=== PATIENT | female | born 1955 | race Caucasian/White ===

== ENCOUNTER → 2016-05-13 | Outpatient (CLI) | payer OTHER ==
--- NOTE | 2016-05-16 10:13 | MM ---
Reason for exam: screening (asymptomatic). Last mammogram was performed 1 year and 3 months ago. History: Patient is postmenopausal. Benign right mammotome panel of the right breast, January 08, 2013. Took progesterone for 1 month. Physical Findings: A clinical breast exam by your physician is recommended on an annual basis and results should be correlated with mammographic findings. MG 3D Screening Mammo W/Cad Bilateral CC and MLO view(s) were taken. Prior study comparison: February 18, 2015, bilateral MG screening mammo w CAD. February 12, 2014, bilateral MG diagnostic mammo w CAD NAOMY. The breast tissue is heterogeneously dense. This may lower the sensitivity of mammography. Benign calcifications bilaterally. Previous mammotome biopsy in the right breast. There is chronic nodularity bilaterally. No significant changes when compared with prior studies. ASSESSMENT: Benign, BI-RAD 2 RECOMMENDATION: Routine screening mammogram of both breasts in 1 year.
== END | disposition home or self-care (01) ==
LOC: RADMAMWWP 07:55
PROVIDERS: ATTEND Obstetrics & Gynecology
DX: Z12.31 Encounter for screening mammogram for malignant neoplasm of breast (principal)
CPT/HCPCS: 77063; G0202

== ENCOUNTER → 2016-06-08 | Outpatient (CLI) | payer OTHER ==
--- NOTE | 2016-06-08 17:35 | WWHP ---
DATE OF SERVICE: 06/08/2016. CHIEF COMPLAINT: Patient is here for her routine gynecologic exam. HPI: This is a 60-year-old G4, P4 with an LMP of 2008. The patient is complaining of some vaginal dryness which makes it very uncomfortable to have sexual intercourse. She has tried lubrication without much help. The patient continues to use Zoloft for anxiety. She has tried several times to wean off of it and within a few months she develops severe panic attacks and anxiety. She states she is doing well with the Zoloft. PAST MEDICAL HISTORY: Depression and anxiety, seasonal allergies. MEDICATIONS: 1. Zoloft 50 mg daily. 2. Flonase p.r.n. 3. Zyrtec p.r.n. ALLERGIES TO AUGMENTIN AND PENICILLIN. PAST SURGICAL HISTORY: Unchanged from the 2014 H&P. SOCIAL HISTORY: She denies tobacco and drug use and has about 5 to 7 alcoholic drinks per week. 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 REVIEW OF SYSTEMS: She has lost about 9 pounds over the last year and this has been done through diet and exercise. She denies respiratory, cardiac, or GI problems. PHYSICAL EXAM: Blood pressure 116/77. Height 5 feet 5 inches. Weight 198 pounds. Temperature 98.3, pulse 88. This a well-developed, well-nourished white female who is alert and oriented x3 in no acute distress. HEENT is within normal limits. NECK: Supple without mass or thyromegaly. CHEST AND LUNGS: Clear to auscultation. HEART: Regular rate and rhythm. Breasts are without mass or discharge. Axillary exam is negative for adenopathy. BACK: Negative for CVA tenderness. ABDOMEN: Soft, nontender, without palpable masses. PELVIC EXAM: External genitalia reveals mild to moderate atrophy without lesions. Cervix and vagina reveal mild to moderate atrophy without lesions. There is no evidence of prolapse. There is no cervical motion tenderness. The uterus is midposition, nongravid size and nontender. There are no palpable adnexal masses or tenderness. Rectovaginal exam is negative for mass or tenderness and is negative for occult blood. EXTREMITIES: Nontender. IMPRESSION: 1. A 60-year-old menopausal female with mild to moderate genital atrophy and otherwise unremarkable gynecologic exam. 2. Vaginal dryness secondary to genital atrophy. 3. History of anxiety and panic attacks. She is doing well on Zoloft. PLAN: 1. Pap smear was performed. 2. Self-breast examination was discussed. 3. Mammogram on 05/13/2016 was benign. She will repeat this in one year. 4. Continue Zoloft 50 mg daily. 5. Trial of Premarin vaginal cream 1 to 2 grams intravaginally twice weekly. 6. A prescription for the upcoming year was given to patient for this. 7. Patient is requesting screening labs and this will include cholesterol. Comprehensive chem panel and CBC. An order slip was given and she will return fasting. She states she has not seen Dr. Mccoy during the past 1 to 2 years. 8. She will return in one year. NELIA
== END | disposition home or self-care (01) ==
LOC: WWCWWP 10:03
PROVIDERS: ATTEND Obstetrics & Gynecology
DX: Z01.419 Encounter for gynecological examination (general) (routine) without abnormal findings (principal)

== ENCOUNTER → 2017-06-07 | Outpatient (CLI) | payer OTHER ==
[2017-06-07 09:35] VITALS: BP 124/79; PULSE 81; RESP 18; TEMP 97.4; BMI 31.2
--- NOTE | 2017-06-07 10:20 | P.HPOB ---
History of Present Illness H&P Date: 06/07/17 Chief Complaint: The patient is here for her routine gynecologic exam and mammogram. This is a 61-year-old with an LMP of 2007. The patient is without gynecologic complaints and denies any postmenopausal bleeding. Review of Systems The patient has lost about 10 pounds over the last year. She has done this with diet and exercise. She denies respiratory, cardiac, or G.I. problems. Past Medical History Additional Past Medical History / Comment(s): Depression, anxiety and seasonal allergies. 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 She has had four vaginal deliveries. Past Surgical History: Breast Surgery (Right core breast biopsy in 2012.), Orthopedic Surgery (Hand surgery) Additional Past Surgical History / Comment(s): Bunionectomy, colonoscopy 2010. 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 - Past Family History Father Family Medical History: Cancer (Leukemia) Medications and Allergies Home Medications Medication Instructions Recorded Confirmed Type Cetirizine HCl [Zyrtec] 10 mg PO DAILY 06/07/17 06/07/17 History Fluticasone Propionate [Flonase 1 spray EA NOSTRIL 06/07/17 History Allergy Relief] Sertraline [Zoloft] 50 mg PO DAILY 06/07/17 06/07/17 History Allergies Allergy/AdvReac Type Severity Reaction Status Date / Time amoxicillin [From Augmentin] Allergy Rash/Hives Verified 06/07/17 07:36 clavulanic acid Allergy Rash/Hives Verified 06/07/17 07:36 [From Augmentin] Penicillins Allergy Rash/Hives Verified 06/07/17 07:36 Exam - Vital Signs Vital signs: Vital Signs Temp Pulse Resp BP 06/07/17 09:23 97.4 F L 81 18 124/79 Intake and Output 06/06/17 06/07/17 06/07/17 22:59 06:59 14:59 Other: Weight 85.275 kg Height 5'5", CHITO 31.3. This is a well-developed well-nourished white female who is alert and oriented times 3 in no acute distress. HEENT: Within normal limits. NECK: Supple without mass or thyromegaly. CHEST AND LUNGS: Clear to auscultation. HEART: Regular rate and rhythm. BREASTS: Are without mass or discharge. AXILLARY EXAM: Negative for adenopathy. BACK: Negative for CVA tenderness. ABDOMEN: Soft, nontender, without palpable masses. PELVIC EXAM: Normal external genitalia with mild to moderate atrophy. Cervix and vagina appear normal with mild atrophy. There is no unusual discharge. There is no evidence of prolapse. The uterus is midposition, nongravid size and nontender. There are no palpable adnexal masses or tenderness. RECTAL EXAM: rectovaginal exam is negative for mass or tenderness and is negative for occult blood. EXTREMITIES: Nontender. IMPRESSION: 1. 61-year-old menopausal female with normal gynecologic exam. PLAN: 1. Pap smear was deferred since she had a normal one last year. 2. Self breast awareness was discussed. 3. Screening mammogram will be done today. 4. Osteoporosis prevention was discussed. She had a normal bone density test on 02/05/2016. We will plan on repeating this in approximately 6 years. 5. He will return in one year.
--- NOTE | 2017-06-07 14:21 | MM ---
Reason for exam: screening (asymptomatic). Last mammogram was performed 1 year and 1 month ago. History: Patient is postmenopausal and has history of other cancer at age 61. Benign right mammotome panel of the right breast, January 08, 2013. Took progesterone for 1 month. Physical Findings: A clinical breast exam by your physician is recommended on an annual basis and results should be correlated with mammographic findings. MG 3D Screening Mammo W/Cad Bilateral CC and MLO view(s) were taken. Prior study comparison: May 13, 2016, bilateral MG 3d screening mammo w/cad. February 18, 2015, bilateral MG screening mammo w CAD. The breast tissue is heterogeneously dense. This may lower the sensitivity of mammography. Finding: There are typically benign vascular, round calcifications in both breasts. Previous mammotome biopsy in the right breast. There is a chronic nodularity bilaterally. There is no discrete abnormality. ASSESSMENT: Benign, BI-RAD 2 RECOMMENDATION: Routine screening mammogram of both breasts in 1 year.
== END | disposition home or self-care (01) ==
LOC: WWCWWP 09:16
PROVIDERS: ATTEND Obstetrics & Gynecology
DX: Z12.31 Encounter for screening mammogram for malignant neoplasm of breast (principal)
CPT/HCPCS: 77063; 77067

== ENCOUNTER → 2017-09-13 | Outpatient (CLI) | payer OTHER ==
--- NOTE | 2017-09-13 18:37 | CT ---
EXAMINATION TYPE: CT abdomen pelvis w con DATE OF EXAM: 09/13/2017 COMPARISON: None HISTORY: Left lower quadrant pain and diarrhea. CT DLP: 1068 mGycm Automated exposure control for dose reduction was used. TECHNIQUE: Helical acquisition of images was performed from the lung bases through the pelvis. CONTRAST: Performed with Oral Contrast and with IV Contrast, patient injected with 100 mL of Isovue M300. FINDINGS: Lung bases are clear. There is no pleural effusion. Heart size is normal. There is no pericardial eff usion. There is a 1 cm cyst in the inferior right lobe of the liver. The bile ducts are not dilated. Spleen appears normal. There is no pancreatic mass. Gallbladder appears normal. Bile ducts are not dilated. There is no adrenal mass. Kidneys show satisfactory contrast opacification. There is no hydronephrosi s. There is no retroperitoneal adenopathy. There is no ascites. There is some wall thickening of the sigmoid colon. Bladder distends smoothly. There is no pelvic mass. Uterus is anteverted. I see no bon y destructive process. Appendix is filled with contrast and appears normal. There are sigmoid diverti cula. IMPRESSION: THERE IS WALL THICKENING AND SIGMOID DIVERTICULA. NO SIGNIFICANT SURROUNDING INFLAMMATORY CHANGES. TH IS IS CONSISTENT WITH MILD FOCAL COLITIS.
== END | disposition home or self-care (01) ==
LOC: RADCTMAIN 16:25
PROVIDERS: ATTEND Physician Assistant
DX: K57.30 Diverticulosis of large intestine without perforation or abscess without bleeding (principal); K63.89 Other specified diseases of intestine
CPT/HCPCS: 74177; Q9967

== ENCOUNTER → 2017-12-01 | Day surgery (SDC) | payer OTHER ==
[2017-11-29 12:09] VITALS: BMI 31.4
[~2017-12-01] MED LIST: LACTATED RINGERS 1,000 ML IV SCH; LIDOCAINE 1% 20 ML VIAL (10MG/ML) FOR IV START INTRADERMA ONE; LIDOCAINE 1% INJ 10MG/ML (20 ML MDV) ONE; PROPOFOL 10 MG/ML 20 ML VIAL IV ONE
[2017-12-01 09:11] VITALS: RESP 16; TEMP 99.4
--- NOTE | 2017-12-01 10:08 | P.PCN ---
Date of Procedure: 12/01/17 Procedure(s) Performed: BRIEF HISTORY: Patient is a 62-year-old pleasant female, scheduled for an elective colonoscopy as a part of value should of the colon appeared normal pain and intermittent diarrhea for the last few few weeks duration. PROCEDURE PERFORMED: Colonoscopy with snare polypectomy PREOPERATIVE DIAGNOSIS: Left lower quadrant pain and intermittent diarrhea. IV sedation per Anesthesia. PROCEDURE: After informed consent was obtained, the patient, was brought into the endoscopy unit. IV sedation was administered by Anesthesia under continuous monitoring. Digital rectal examination was normal. Initially the Olympus CF- 160 flexible video colonoscope was then inserted in the rectum, gradually advanced into the cecum without any difficulty. Careful examination was performed as the scope was gradually being withdrawn. Ileocecal valve and the appendiceal orifice were visualized and appeared normal. Prep was excellent. Mucosa of the cecum, ascending colon, transverse colon, descending colon, sigmoid colon, and rectum appeared normal. Scattered small diverticula seen. In the proximal rectum there was a 5 mm polyp that was removed by snare polypectomy. Retroflexion was performed in the rectum and no lesions were seen. The patient tolerated the procedure well. IMPRESSION: 5 mm proximal rectal polyp status post polypectomy Scattered sigmoid diverticulosis RECOMMENDATIONS: Findings of this examination were discussed with the patient as well as a family. She can have a repeat colonoscopy in 5 years based on the biopsy results.
[2017-12-01 10:44] VITALS: BP 119/72; PULSE 67
== END | disposition home or self-care (01) ==
LOC: ORWHC2ENDO 08:15
PROVIDERS: ATTEND Internal Medicine Gastroenterology
DX: K62.1 Rectal polyp (principal); K57.30 Diverticulosis of large intestine without perforation or abscess without bleeding; Z88.0 Allergy status to penicillin; F32.9 Major depressive disorder, single episode, unspecified; H93.19 Tinnitus, unspecified ear; Z79.899 Other long term (current) drug therapy
CPT/HCPCS: 88305; 45385; J2001; J2704

== ENCOUNTER → 2018-07-10 | Outpatient (CLI) | payer OTHER ==
[2018-07-10 14:45] VITALS: BP 130/88; PULSE 73; RESP 18; TEMP 98.3; BMI 32.7
--- NOTE | 2018-07-10 17:44 | P.HPOB ---
History of Present Illness H&P Date: 07/10/18 Chief Complaint: The patient is here for her routine gynecologic exam and ma mmogram. This is a 62-year-old with an LMP of 2007. The patient states she noticed a bruise on her left breast 1 week ago. She does not know what caused the bruise and denies any known trauma. The bruise has improved significantly since then. She is otherwise without complaints and denies any postmenopausal bleeding. Review of Systems The patient has gained 20 pounds over the last year. She denies respiratory, cardiac, or G.I. problems. Past Medical History Additional Past Medical History / Comment(s): seasonal allergies. 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 . History of Any Multi-Drug Resistant Organisms: None Reported Past Surgical History: Breast Surgery, Orthopedic Surgery Additional Past Surgical History / Comment(s): Bunionectomy. RT BREAST BX - BENIGN. Right arthroscopic knee surgery. Colonoscopy 2018(2nd). 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 - Past Family History Father Family Medical History: Cancer Additional Family Medical History / Comment(s): Leukemia Medications and Allergies Home Medications Medication Instructions Recorded Confirmed Type Cetirizine HCl [Zyrtec] 10 mg PO DAILY 06/07/17 07/10/18 History Fluticasone Propionate [Flonase 1 spray EA NOSTRIL DAILY 06/07/17 07/10/18 History Allergy Relief] Sertraline [Zoloft] 50 mg PO DAILY 06/07/17 07/10/18 History Allergies Allergy/AdvReac Type Severity Reaction Status Date / Time amoxicillin [From Augmentin] Allergy Rash/Hives Verified 07/10/18 14:47 clavulanic acid Allergy Rash/Hives Verified 07/10/18 14:47 [From Augmentin] Penicillins Allergy Rash/Hives Verified 07/10/18 14:47 Exam Vital Signs Temp Pulse Resp BP 07/10/18 14:40 98.3 F 73 18 130/88 Intake and Output 07/10/18 07/10/18 07/10/18 06:59 14:59 22:59 Other: Weight 94.801 kg Height 5'7", weight 209 pounds, BMI 32.7. This is a well-developed well-nourished white female who is alert and oriented times 3 in no acute distress. HEENT: Within normal limits. NECK: Supple without mass or thyromegaly. CHEST AND LUNGS: Clear to auscultation. HEART: Regular rate and rhythm. BREASTS: there is a left breast mass in the 1 to 2 o'clock position measuring approximately 1.0 x 1.5 cm. This is firm and nontender. There is a faint bruise around this area measuring approximately 2.5 x 2.5 cm. There are no other breast masses. There is no nipple discharge. AXILLARY EXAM: Negative for adenopathy. BACK: Negative for CVA tenderness. ABDOMEN: Soft, nontender, without palpable masses. PELVIC EXAM: Normal external genitalia with mild atrophy. Cervix and vagina appear normal with mild atrophy. There is no unusual discharge. There is no evidence of prolapse. The uterus is midposition, nongravid size and nontender. There are no palpable adnexal masses or tenderness. RECTAL EXAM: rectovaginal exam is negative for mass or tenderness and is negative for occult blood. EXTREMITIES: Nontender. IMPRESSION: 1. 62-year-old menopausal female with normal pelvic gynecologic exam. 2. Left breast mass measuring approximately 1.5 x 1.0 cm in in area that was bruised last week without any known trauma. 3. History of anxiety doing well on Zoloft. PLAN: 1. Pap smear was performed. 2. Self breast awareness was discussed with the patient. 3. Diagnostic bilateral mammogram with left breast ultrasound will be done today. The area of the palpable mass was marked. 4. The patient has been on Zoloft for anxiety for many years. She has tried several times to wean off of it without success. She will continue the Zoloft. The electronic prescription for this will be sent to [facility]. 5. Osteoporosis prevention was discussed. I have stressed the importance of adequate calcium, vitamin D and regular exercise. Recommended amounts of calcium and vitamin D were also discussed. She had a normal bone density test on 02/05/2016. Plan and repeating this approximately in 2021. 6.She was advised to return in one year for her annual well woman exam.
--- NOTE | 2018-07-11 09:12 | MM ---
Reason for exam: clinical finding. Last mammogram was performed 1 year and 1 month ago. History: Patient is postmenopausal and has history of other cancer at age 61. Benign right mammotome panel of the right breast, January 08, 2013. Took progesterone for 1 month. Indicated problem(s): lump or thickening in the left breast. Physical Findings: Nurse Summary: 1 x 1.5cm nodule in the left breast at 1-2 o'clock (Dr. Butler). MG 3D Diag Mammo W/Cad NAOMY Bilateral CC and MLO view(s) were taken. Prior study comparison: June 07, 2017, bilateral MG 3d screening mammo w/cad. May 13, 2016, bilateral MG 3d screening mammo w/cad. The breast tissue is heterogeneously dense. This may lower the sensitivity of mammography. There are benign appearing stable masses that appear as intramammary lymph nodes. Benign appearing bilateral calcifications. Right biopsy marker 07/10/18. ASSESSMENT: Benign, BI-RAD 2 RECOMMENDATION: Routine screening mammogram of both breasts in 1 year. Ultrasound will be performed at palpable per order.
--- NOTE | 2018-07-11 09:15 | USB ---
Reason for exam: clinical finding. History: Patient is postmenopausal and has history of other cancer at age 61. Benign right mammotome panel of the right breast, January 08, 2013. Took progesterone for 1 month. Indicated problem(s): lump or thickening in the left breast. US Breast Limited LT Left limited breast ultrasound including focal area of concern, retroareolar and axilla demonstrates predominantly hyperechoic area measuring 1.3cm is seen at the site of bruising corresponding to the palpable compatible with a hematoma. Repeat ultrasound would be recommended if this does not decrease in size in 3 months. These results were verbally communicated with the patient and result sheet given to the patient on 07/10/18. ASSESSMENT: Benign, BI-RAD 2 RECOMMENDATION: Routine screening mammogram of both breasts in 1 year. Manage patient on a clinical basis. If no decrease in size in 3 months then follow up ultrasound would be recommended.
== END | disposition home or self-care (01) ==
LOC: WWCWWP 13:53
PROVIDERS: ATTEND Obstetrics & Gynecology
DX: N63.21 Unspecified lump in the left breast, upper outer quadrant (principal)
CPT/HCPCS: 77062; 77066

== ENCOUNTER → 2019-02-08 | Outpatient (CLI) | payer OTHER ==
--- NOTE | 2019-02-08 15:07 | US ---
EXAMINATION TYPE: US carotid duplex BILAT DATE OF EXAM: 02/08/2019 COMPARISON: NONE CLINICAL HISTORY: R93.1 Abn findings diagnostic imaging of heart. CT scan at dental office showed plaque in arteries. EXAM MEASUREMENTS: RIGHT: Peak Systolic Velocity (PSV) cm/sec ----- Right CCA: 74.3 ----- Right ICA: 100.0 ----- Right ECA: 41.0 ICA/CCA ratio: 1.3 RIGHT: End Diastole cm/sec ----- Right CCA: 23.7 ----- Right ICA: 43.1 ----- Right ECA: 15.4 LEFT: Peak Systolic Velocity (PSV) cm/sec ----- Left CCA: 64.7 ----- Left ICA: 79.6 ----- Left ECA: 50.7 ICA/CCA ratio: 1.2 LEFT: End Diastole cm/sec ----- Left CCA: 16.8 ----- Left ICA: 0.0 ----- Left ECA: 10.2 VERTEBRALS (direction of flow): Right Vertebral: Antegrade Left Vertebral: Antegrade Rhythm: Normal Mild atherosclerotic changes with no significant velocity increases. IMPRESSION: Mild degree of grayscale atheromatous plaquing with no sonographically evident hemodynam ically significant stenosis within either visualized carotid arterial system. Criteria for Assigning % of Stenosis / Diameter reduction (Estimation based on the indirect measurements of the internal carotid artery velocities (ICA PSV). 1. Normal (no stenosis)=ICA PSV < 125 cm/s: ratio < 2.0: ICA EDV<40 cm/s. 2. Less than 50% stenosis=ICA PSV < 125 cm/s: ratio < 2.0: ICA EDV<40 cm/s. 3. 50 to 69% stenosis=ICA PSV of 125 to 230 cm/s: ration 2.0 ? 4.0: ICA EDV 40-100 cm/s. 4. Greater than 70% stenosis to near occlusion= ICA PSV > 230 cm/s: ratio > 4.0: ICA EDV > 100 cm/s. 5. Near occlusion= ICA PSV velocities may be low or undetectable: variable ratio and ICA EDV. 6. Total occlusion=unable to detect flow.
--- NOTE | 2019-02-11 10:25 | BD ---
EXAMINATION TYPE: Axial Bone Density DATE OF EXAM: 02/08/2019 COMPARISON: 02/05/2016 CLINICAL HISTORY: Z 78.0 Height: 64.5 IN Weight: 203 LBS FRAX RISK QUESTIONS: Secondary Osteoporosis: 3. Menopause before 45: AGE 49 RISK FACTORS HISTORY OF: Active: YES Postmenopausal woman: AGE 49 MEDICATIONS: Additional Medications: MULTI VIT, ZOLOFT, ALLERGY MEDS, EXAM MEASUREMENTS: Bone mineral densitometry was performed using the [employer] System. Bone mineral density as measured about the Lumbar spine is: ----- L1-L4(G/cm2): 1.493 T Score Values are as follows: ----- L2: 1.6 ----- L3: 2.5 ----- L4: 4.1 ----- L1-L4: 2.6 Bone mineral density has: Increased 0.8% since study of: 02/05/2016 Bone mineral density about the R hip (g/cm2): 1.152 Bone mineral density about the L hip (g/cm2): 1.198 T Score values are as follows: -----R Neck: 0.8 -----L Neck: 1.1 -----R Total: 2.3 -----L Total: 2.8 Bone mineral density has: Decreased -2.4% since study of: 02/05/2016 IMPRESSION: Normal (Values between +1 and -1 indicate normal bone mass). Consider repeating this study in 5 year s or sooner if there is some new clinical indication. NOTE: T-SCORE=SD OF THE YOUNG ADULT MEAN.
== END | disposition home or self-care (01) ==
LOC: RADUSWWP 14:22
PROVIDERS: ATTEND Family Medicine
DX: I65.23 Occlusion and stenosis of bilateral carotid arteries (principal); Z78.0 Asymptomatic menopausal state
CPT/HCPCS: 77080; 93880

== ENCOUNTER → 2019-11-27 | Outpatient (CLI) | payer MEDICARE ==
[2019-11-27 11:36] VITALS: BP 145/89; PULSE 80; RESP 18; TEMP 97.7
--- NOTE | 2019-11-27 12:22 | P.HPOB ---
History of Present Illness H&P Date: 11/27/19 Chief Complaint: The patient is here for her routine gynecologic exam. This is a 64-year-old with an LMP of 2008. The patient is without gynecologic complaints. Review of Systems She has lost about 23 pounds with dietary changes. She has been doing a weight loss program with her chiropractor. She denies respiratory, cardiac and G.I. problems. She denies maltreatment or problems with falling. : she denies any significant problems with urinary leakage. Past Medical History Additional Past Medical History / Comment(s): seasonal allergies. 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 . History of Any Multi-Drug Resistant Organisms: None Reported Past Surgical History: Breast Surgery, Orthopedic Surgery Additional Past Surgical History / Comment(s): Bunionectomy. RT BREAST BX - BENIGN. Right arthroscopic knee surgery. Colonoscopy 2018(2nd). Past Anesthesia/Blood Transfusion Reactions: No Reported Reaction Past Psychological History: Anxiety, Depression Smoking Status: Never smoker Past Alcohol Use History: Occasional (4-5 per week) Additional Past Alcohol Use History / Comment(s): DRINKS ABOUT 5 WEEKLY Past Drug Use History: None Reported Additional History: She has been since 1973 and is now retired. She has 12 grandchildren. - Past Family History Father Family Medical History: Cancer Additional Family Medical History / Comment(s): Leukemia Medications and Allergies Home Medications Medication Instructions Recorded Confirmed Type Cetirizine HCl [Zyrtec] 10 mg PO DAILY 06/07/17 11/27/19 History Fluticasone Propionate [Flonase 1 spray EA NOSTRIL DAILY 06/07/17 11/27/19 History Allergy Relief] Sertraline [Zoloft] 50 mg PO DAILY #90 tab 07/10/18 11/27/19 Rx Allergies Allergy/AdvReac Type Severity Reaction Status Date / Time amoxicillin [From Augmentin] Allergy Rash/Hives Verified 11/27/19 11:36 clavulanic acid Allergy Rash/Hives Verified 11/27/19 11:36 [From Augmentin] Penicillins Allergy Rash/Hives Verified 11/27/19 11:36 Exam Vital Signs Temp Pulse Resp BP Pulse Ox 11/27/19 11:30 97.7 F 80 18 145/89 98 Intake and Output 11/26/19 11/27/19 11/27/19 22:59 06:59 14:59 Other: Weight 84.368 kg Height 5 feet 5 inches, weight 186 pounds, BMI 31.0. This is a well-developed well-nourished white female who is alert and oriented times 3 in no acute distress. HEENT: Within normal limits. NECK: Supple without mass or thyromegaly. CHEST AND LUNGS: Clear to auscultation. HEART: Regular rate and rhythm. BREASTS: Are without mass or discharge. AXILLARY EXAM: Negative for adenopathy. BACK: Negative for CVA tenderness. ABDOMEN: Soft, nontender, without palpable masses. PELVIC EXAM: Normal external genitalia with mild atrophy. Cervix and vagina appear normal mild atrophy. There is no unusual discharge. There is no evidence of prolapse. The uterus is midposition, nongravid size and nontender. There are no palpable adnexal masses or tenderness. RECTAL EXAM: Rectovaginal exam is negative for mass or tenderness and is negative for occult blood. EXTREMITIES: Nontender. IMPRESSION: 1. 64-year-old menopausal female with normal gynecologic exam. 2. Mildly elevated blood pressure. PLAN: 1. Pap smear was deferred since she had a normal one on 07/10/2018. 2. Self breast awareness was discussed with the patient. 3. Screening mammogram is due. The patient states she will schedule it in the near future. The order slip was given to the patient for this. 4. Osteoporosis prevention was discussed. I have stressed the importance of adequate calcium, vitamin D and regular exercise. She had a normal bone density test done in 2015 and we are planning to redo this again in 2021. 5. She plans to get a flu shot in the near future. 6. We have discussed her elevated blood pressure today. I have recommended that she check her own blood pressure on a regular basis and follow-up with her PCP for blood pressure elevations. 7. The patient was advised to return in 1-2 years for her well woman examination.
== END | disposition home or self-care (01) ==
LOC: WWCWWP 11:17
PROVIDERS: ATTEND Obstetrics & Gynecology
DX: Z53.9 Procedure and treatment not carried out, unspecified reason (principal)

== ENCOUNTER → 2020-01-06 | Outpatient (CLI) | payer MEDICARE | END | disposition home or self-care (01) | LOC: LABWHC1 10:02 | PROVIDERS: ATTEND Otolaryngology | DX: J30.89 Other allergic rhinitis (principal) | CPT/HCPCS: 36415 ==

== ENCOUNTER → 2020-03-03 | Outpatient (CLI) | payer MEDICARE ==
--- NOTE | 2020-03-04 15:05 | MM ---
Reason for exam: screening (asymptomatic). Last mammogram was performed 1 year and 8 months ago. History: Patient is postmenopausal and has history of other cancer at age 61. Benign right mammotome panel of the right breast, January 08, 2013. Took progesterone for 1 month. Physical Findings: A clinical breast exam by your physician is recommended on an annual basis and results should be correlated with mammographic findings. MG 3D Screening Mammo W/Cad Bilateral CC and MLO view(s) were taken. Prior study comparison: July 10, 2018, bilateral MG 3d diag mammo w/cad NAOMY. June 07, 2017, bilateral MG 3d screening mammo w/cad. The breast tissue is heterogeneously dense. This may lower the sensitivity of mammography. There are benign appearing round vascular calcifications bilaterally. Previous mammotome biopsy in the right breast. There is chronic nodularity bilaterally. There is no discrete abnormality. ASSESSMENT: Benign, BI-RAD 2 RECOMMENDATION: Routine screening mammogram of both breasts in 1 year.
== END | disposition home or self-care (01) ==
LOC: RADMAMWWP 16:05
PROVIDERS: ATTEND Obstetrics & Gynecology
DX: Z12.31 Encounter for screening mammogram for malignant neoplasm of breast (principal)
CPT/HCPCS: 77063; 77067

== ENCOUNTER → 2020-09-24 | Outpatient (CLI) | payer MEDICARE ==
--- NOTE | 2020-09-24 12:59 | US ---
EXAMINATION TYPE: US abdomen limited DATE OF EXAM: 09/24/2020 COMPARISON: None CLINICAL HISTORY: 64-year-old female R05 Right upper quadrant pain. Belching, nausea after fatty meal s EXAM MEASUREMENTS: Liver Length: 15.3 cm Gallbladder Wall: 0.2 cm CBD: 2.5 mm Right Kidney: 11.0 x 6.0 x 4.1 cm Pancreas: Most of the pancreas is visualized and shows no gross abnormality. Liver: Slightly echogenic compared to the adjacent right kidney. Benign right lobe cyst noted = 1.0 x 1.1 x 0.9cm Gallbladder: Multiple small shadowing calculi within the gallbladder. No abnormal gallbladder distent ion, wall thickening, pericholecystic fluid. Evidence for sonographic Roque's sign: no CBD: wnl Right Kidney: No hydronephrosis. IMPRESSION: Slightly increased echogenicity of the liver may reflect mild fatty infiltration. Numerous small mobi le gallstones. No ancillary findings of acute cholecystitis. No biliary ductal dilatation.
== END | disposition home or self-care (01) ==
LOC: RADUSWWP 09:43
PROVIDERS: ATTEND Family Medicine
DX: K80.20 Calculus of gallbladder without cholecystitis without obstruction (principal)
CPT/HCPCS: 76705

== ENCOUNTER 2020-10-26 06:40 | Day surgery (SDC) | payer MEDICARE ==
[2020-10-21 10:13] VITALS: BMI 31.9
[~2020-10-26 06:40] MED LIST changes: +ACETAMINOPHEN TAB 500 MG TAB PO PRN; +DEXAMETHASONE SOD PHOSPHATE 4 MG/ML 1 ML VIAL IV ONE; +HEPARIN SODIUM,PORCINE/PF 5,000 UNIT/0.5 ML SYRINGE SQ PRN; -LIDOCAINE 1% 20 ML VIAL (10MG/ML) FOR IV START INTRADERMA ONE; -LIDOCAINE 1% INJ 10MG/ML (20 ML MDV) ONE; +ONDANSETRON 4 MG/2 ML VIAL IVP ONE; -PROPOFOL 10 MG/ML 20 ML VIAL IV ONE
[2020-10-26] MEDS ORDERED: MIDAZOLAM 2 MG/2 ML VIAL ONE (07:40)
[2020-10-26] MEDS ORDERED: PROPOFOL 10 MG/ML 20 ML VIAL IV ONE (07:40)
[2020-10-26] MEDS ORDERED: GLYCOPYRROLATE 0.2 MG/ML 2 ML VIAL ONE (07:40)
[2020-10-26] MEDS ORDERED: fentaNYL (PF) 50 MCG/ML 2 ML AMP ONE (07:40)
[2020-10-26] MEDS ORDERED: NEOSTIGMINE 1 MG/ML 10 ML VIAL ONE (07:40)
[2020-10-26] MEDS ORDERED: LIDOCAINE 1% INJ 10MG/ML (20 ML MDV) ONE (07:40)
[2020-10-26] MEDS ORDERED: PHENYLEPHRINE-0.9% NACL SYG 1,000 MCG/10 ML SYRINGE ONE (07:40)
[2020-10-26] MEDS ORDERED: SUCCINYLCHOLINE CHLORIDE 100 MG/5 ML SYR IV ONE (07:40)
[2020-10-26] MEDS ORDERED: ROCURONIUM 10 MG/ML (5 ML VIAL) IV ONE (07:40)
[2020-10-26] MEDS ORDERED: LIDOCAINE 1% INJ 10MG/ML (20 ML MDV) SQ ONE (08:11)
[2020-10-26] MEDS ORDERED: ONDANSETRON 4 MG/2 ML VIAL IVP PRN (08:42)
--- NOTE | 2020-10-26 08:45 | P.OP ---
Date of Procedure: 10/26/20 Procedure(s) Performed: PREOPERATIVE DIAGNOSIS: Chronic cholecystitis POSTOPERATIVE DIAGNOSIS: Same PROCEDURE: Laparoscopic cholecystectomy SURGEON: Gonzalo EBL: Minimal see anesthesia record ANESTHESIA: Gen. COMPLICATIONS: None OPERATIVE PROCEDURE: The patient was brought and placed on the operating room table in the supine position. The patient was placed under general anesthesia at that time. The abdomen was prepped and draped in the usual sterile fashion. A small vertical infraumbilical incision was made. The fascia was grasped with the Brody forceps. The fascia was retracted anteriorly. The Veress needle was advanced into the peritoneal cavity. The saline drop test was normal. Insufflation took place up to 15 mmHg. A 5 mm optical trocar was advanced and the peritoneal cavity. 2 additional 5 mm trochars were placed in the right upper quadrant under direct visualization. A 12 mm trocar was advanced into the epigastric incision site. The gallbladder was retracted superiorly and laterally. The peritoneum overlying the infundibulum was bluntly dissected. The patient's cystic duct was visualized. The junction between the cystic duct common and hepatic duct was identified. The critical view of safety was achieved after blunt dissection. The cystic duct was then divided after placement of 3 12 mm clips on the patient's side and one on the specimen side. The cystic artery was identified and clipped as well. A small vessel was seen along the gallbladder fossa and clipped as well. The gallbladder was then removed from the liver bed using electrocautery. The gallbladder was then removed from the epigastric trocar site with an Endo Catch bag. The gallbladder fossa was irrigated with saline. There was no evidence of any bleeding or biliary drainage seen. The fascia at the 12 millimeter site was closed using a Oskar-Katherine 0 Vicryl stitch. The trochars were then removed. The skin at all 4 sites was closed using a 4-0 Monocryl stitch. Skin glue was utilized on the incision sites. At the end of this procedure the sponge and needle counts were correct. DISPOSITION: Stable to the recovery room
[2020-10-26 08:47] VITALS: TEMP 97.3
[2020-10-26] MEDS: HYDROmorphone 0.5 MG/0.5 ML SYRINGE IVP PRN ×3 (08:50→09:06)
[2020-10-26] MEDS ORDERED: ALBUTEROL NEBULIZED 2.5 MG/3 ML INHALATION ONE (09:19)
[2020-10-26 09:26] VITALS: RESP 16
[2020-10-26 10:14] VITALS: BP 133/71; PULSE 74
[2020-10-26] MEDS ORDERED: IBUPROFEN 600 MG TAB PO SCH (12:00)
[2020-10-26] MEDS ORDERED: ACETAMINOPHEN TAB 325 MG TAB PO SCH (14:00)
== END 2020-10-26 10:32 | disposition home or self-care (01) ==
LOC: OR 06:40
PROVIDERS: ATTEND Surgery
DX: K80.10 Calculus of gallbladder with chronic cholecystitis without obstruction (principal); M19.90 Unspecified osteoarthritis, unspecified site; Z79.899 Other long term (current) drug therapy; G47.33 Obstructive sleep apnea (adult) (pediatric); F32.9 Major depressive disorder, single episode, unspecified; F41.9 Anxiety disorder, unspecified; H93.19 Tinnitus, unspecified ear; J30.1 Allergic rhinitis due to pollen; Z88.0 Allergy status to penicillin
CPT/HCPCS: 88304; 47562; J2250; J1100; J2710; J0690; J2405; J2001; J3010; J2370; J0330; J2704; J1170; J1644

== ENCOUNTER → 2021-05-11 | Outpatient (CLI) | payer MEDICARE ==
[2021-05-11 15:32] VITALS: BP 123/73; PULSE 79; RESP 17; TEMP 97.8
--- NOTE | 2021-05-11 16:14 | P.HPOB ---
History of Present Illness H&P Date: 05/11/21 Chief Complaint: The patient is here for her routine gynecologic exam. This is a 65-year-old with an LMP of 2007. The patient is without gynecologic complaints and denies any postmenopausal bleeding. Her depression and anxiety are managed by her PCP now. These have been well-controlled with medications. Review of Systems The patient has gained 7 pounds over the last year. She denies respiratory, cardiac, or G.I. problems. Past Medical History Additional Past Medical History / Comment(s): seasonal allergies. 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 . History of Any Multi-Drug Resistant Organisms: None Reported Past Surgical History: Breast Surgery, Cholecystectomy, Orthopedic Surgery Additional Past Surgical History / Comment(s): Bunionectomy. RT BREAST BX - BENIGN. Right arthroscopic knee surgery. Bilateral knee replacement surgeries. Colonoscopy 2018(next after 10yr). Past Anesthesia/Blood Transfusion Reactions: No Reported Reaction Past Psychological History: Anxiety, Depression Smoking Status: Never smoker Past Alcohol Use History: Daily (1 or 2 per day) Additional Past Alcohol Use History / Comment(s): DRINKS ABOUT 5 WEEKLY Past Drug Use History: None Reported Additional History: She has been since 1973 and is retired. - Past Family History Father Family Medical History: Cancer Additional Family Medical History / Comment(s): Leukemia Medications and Allergies Home Medications Medication Instructions Recorded Confirmed Type Fluticasone Propionate [Flonase 1 spray EA NOSTRIL DAILY 06/07/17 05/11/21 History Allergy Relief] Sertraline [Zoloft] 50 mg PO DAILY #90 tab 07/10/18 05/11/21 Rx Cannabidiol (Cbd) [Epidiolex] 1 dose TOPICAL DAILY PRN 10/21/20 05/11/21 History Loratadine [Claritin] 10 mg PO DAILY 10/21/20 05/11/21 History Allergies Allergy/AdvReac Type Severity Reaction Status Date / Time amoxicillin [From Augmentin] Allergy Rash/Hives Verified 05/11/21 15:27 clavulanic acid Allergy Rash/Hives Verified 05/11/21 15:27 [From Augmentin] Penicillins Allergy Rash/Hives Verified 05/11/21 15:27 Exam Vital Signs Temp Pulse Resp BP Pulse Ox 05/11/21 15:29 97.8 F 79 17 123/73 98 Intake and Output 05/11/21 05/11/21 05/11/21 06:59 14:59 22:59 Other: Weight 87.543 kg Height 5 feet 5 inches, weight 193 pounds, BMI 32.1. This is a well-developed well-nourished white female who is alert and oriented times 3 in no acute distress. HEENT: Within normal limits. NECK: Supple without mass or thyromegaly. CHEST AND LUNGS: Clear to auscultation. HEART: Regular rate and rhythm. BREASTS: Are without mass or discharge. AXILLARY EXAM: Negative for adenopathy. BACK: Negative for CVA tenderness. ABDOMEN: Soft, nontender, without palpable masses. PELVIC EXAM: Normal external genitalia with mild atrophy. Cervix and vagina appear normal with mild atrophy. There is no unusual discharge. There is no evidence of prolapse. The uterus is midposition, nongravid size and nontender. There are no palpable adnexal masses or tenderness. RECTAL EXAM: Rectovaginal exam is negative for mass or tenderness and is negative for occult blood. EXTREMITIES: Nontender. IMPRESSION: 1. 65-year-old menopausal female with normal gynecologic exam. PLAN: 1. Pap smear was performed. If this is negative we will plan on discontinuing Pap smears. 2. Self breast awareness was discussed with the patient. We have also discussed symptoms associated with inflammatory breast cancer. 3. Screening mammogram was done on 03/08/2021 and was benign. She will repeat this after 1 year. 4. Osteoporosis prevention was discussed. I have stressed the importance of adequate calcium, vitamin D and regular exercise. Recommended amounts of calcium and vitamin D were also discussed. We will plan on repeating bone density testing in 1 year. She had a normal one in 2016. 5. She has completed her Covid vaccination series and did receive a booster. 6. The patient was advised to return in 1-2 years for her well woman examination.
== END ==
LOC: WWCWWP 15:17
PROVIDERS: ATTEND Obstetrics & Gynecology
DX: Z01.419 Encounter for gynecological examination (general) (routine) without abnormal findings (principal); Z78.0 Asymptomatic menopausal state; F32.A Depression, unspecified; F41.9 Anxiety disorder, unspecified; Z80.6 Family history of leukemia; Z88.0 Allergy status to penicillin; Z88.1 Allergy status to other antibiotic agents

== ENCOUNTER → 2022-03-15 | Outpatient (CLI) | payer MEDICARE ==
--- NOTE | 2022-03-16 21:59 | MM ---
Reason for Exam: Screening (asymptomatic). Last screening mammogram was performed 12 month(s) ago. Patient History: Menarche at age 13. First Full-Term at age 19. Postmenopausal. Patient has history of breast feeding. Progesterone for 1 month. 01/08/2013, Benign Core Biopsy on the right side. Risk Values: Sharda 5 year model risk: 1.6%. NCI Lifetime model risk: 5.6%. Prior Study Comparison: 07/10/2018 Bilateral Diagnostic Mammogram, [facility]. 03/03/2020 Bilateral Screening Mammogram, [facility]. 03/08/2021 Bilateral Screening Mammogram, [facility]. Tissue Density: The breast tissue is heterogeneously dense. This may lower the sensitivity of mammography. Findings: Analyzed By CAD. Chronic nodularity on both sides. Benign bilateral oil cyst and vascular calcifications. No significant change from prior exams. Overall Assessment: Benign, BI-RAD 2 Management: Screening Mammogram of both breasts in 1 year. 1. Patient should continue monthly self breast exams. 2. A clinical breast exam by your physician is recommended on an annual basis. 3. This exam should not preclude additional follow-up of suspicious palpable abnormalities. Electronically signed and approved by: Nory Wilkins M.D. Radiologist
== END | disposition home or self-care (01) ==
LOC: RADMAMWWP 15:41
PROVIDERS: ATTEND Family Medicine
DX: Z12.31 Encounter for screening mammogram for malignant neoplasm of breast (principal); Z78.0 Asymptomatic menopausal state; Z98.890 Other specified postprocedural states
CPT/HCPCS: 77063; 77067

== ENCOUNTER → 2022-11-08 | Outpatient (CLI) | payer MEDICARE ==
[2022-11-08 09:38] VITALS: BP 120/78; PULSE 82; RESP 16; TEMP 98
--- NOTE | 2022-11-08 10:16 | P.HPOB ---
History of Present Illness H&P Date: 11/08/22 Chief Complaint: The patient is here for her routine gynecologic exam. This is a 67-year-old with an LMP of 2008. The patient is without gynecologic complaints. Review of Systems The patient has lost 4 pounds over the last year. She attributes this to dietary changes. She denies respiratory, cardiac, or G.I. problems. Past Medical History Additional Past Medical History / Comment(s): seasonal allergies. 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 . History of Any Multi-Drug Resistant Organisms: None Reported Past Surgical History: Breast Surgery, Cholecystectomy, Orthopedic Surgery Additional Past Surgical History / Comment(s): Bunionectomy. RT BREAST BX - BENIGN. Right arthroscopic knee surgery. Bilateral knee replacement surgeries. Colonoscopy 2018(next after 10yr). Past Anesthesia/Blood Transfusion Reactions: No Reported Reaction Past Psychological History: Anxiety, Depression (Controlled with medications.PHQ-2 questionaire was given and she scores 0. This is a negative screen for depression.) Smoking Status: Never smoker Past Alcohol Use History: Occasional (0-2 per day.) Additional Past Alcohol Use History / Comment(s): DRINKS ABOUT 5 WEEKLY Past Drug Use History: None Reported Additional History: She has been since 1973 and is retired. - Past Family History Father Family Medical History: Cancer Additional Family Medical History / Comment(s): Leukemia Medications and Allergies Home Medications Medication Instructions Recorded Confirmed Type Fluticasone Propionate [Flonase 1 spray EA NOSTRIL DAILY 06/07/17 11/08/22 History Allergy Relief] Sertraline [Zoloft] 50 mg PO DAILY #90 tab 07/10/18 11/08/22 Rx Loratadine [Claritin] 10 mg PO DAILY 10/21/20 11/08/22 History Cholecalciferol (Vitamin D3) 1 cap PO DAILY 11/08/22 11/08/22 History [Vitamin D3 (125 MCG = 5,000 IU)] L.acidoph,Paracasei, B.lactis 1 cap PO DAILY 11/08/22 11/08/22 History [Probiotic] Magnesium Oxide [Magnesium] 500 mg PO DAILY 11/08/22 11/08/22 History Allergies Allergy/AdvReac Type Severity Reaction Status Date / Time amoxicillin [From Augmentin] Allergy Rash/Hives Verified 11/08/22 09:31 clavulanic acid Allergy Rash/Hives Verified 11/08/22 09:31 [From Augmentin] Penicillins Allergy Rash/Hives Verified 11/08/22 09:31 Exam Vital Signs Temp Pulse Resp BP Pulse Ox 11/08/22 09:34 98 F 82 16 120/78 97 Intake and Output 11/07/22 11/08/22 11/08/22 22:59 06:59 14:59 Other: Weight 85.729 kg Height 5 feet 4 inches, weight 189 pounds, BMI 32.4. This is a well-developed well-nourished white female who is alert and oriented times 3 in no acute distress. HEENT: Within normal limits. NECK: Supple without mass or thyromegaly. CHEST AND LUNGS: Clear to auscultation. HEART: Regular rate and rhythm. BREASTS: Are without mass or discharge. AXILLARY EXAM: Negative for adenopathy. BACK: Negative for CVA tenderness. ABDOMEN: Soft, nontender, without palpable masses. PELVIC EXAM: Normal external genitalia with mild atrophy. Cervix and vagina appear normal with mild atrophy. There is no unusual discharge. There is no evidence of prolapse. The uterus is midposition, nongravid size and nontender. There are no palpable adnexal masses or tenderness. RECTAL EXAM: Rectovaginal exam is negative for mass or tenderness and is negative for occult blood. EXTREMITIES: Nontender. IMPRESSION: 1. 67-year-old menopausal female with normal gynecologic exam. PLAN: 1. Pap smears have been discontinued. 2. Self breast awareness was discussed with the patient. We have also discussed symptoms associated with inflammatory breast cancer. 3. Screening mammogram was done on 03/15/2022 and was benign. She will repeat this after 1 year. The order slip was given to the patient for this 4. Osteoporosis prevention was discussed. I have stressed the importance of adequate calcium, vitamin D and regular exercise. Recommended amounts of calcium and vitamin D were also discussed. Her last bone density test was in 2015 and was normal. She will repeat this again today. 5. She states she is scheduled for a colonoscopy later this year. She is contemplating discussing Cologuard as an alternative with her PCP. 6. Her depression and anxiety are well-controlled with medications. PHQ-2 questionaire was given and she scores 0. This is a negative screen for current depression. 6. The patient was advised to return in 1-2 years for her well woman examination.
--- NOTE | 2022-11-08 18:44 | BD ---
EXAMINATION TYPE: Axial Bone Density DATE OF EXAM: 11/08/2022 CLINICAL HISTORY: 67 years old Female. ICD-10 CODE: Z78.0 POST MENOPAUSAL WITHOUT HRT Height: 64 Weight: 186.4 FRAX RISK QUESTIONS: Alcohol (3 or more units per day): no Family History (Parent hip fracture): no Glucocorticoids (More than 3mos): no (Ex: prednisone, prednisolone, methylprednisolone, dexamethasone, and hydrocortisone). History of Fracture in Adulthood: yes Secondary Osteoporosis: 1. Type 1 Diabetes: no 2. Hyperthyroidism: no 3. Menopause before 45: no 4. Malnutrition: no 5. Chronic liver disease: no Rheumatoid Arthritis: no Current Tobacco Use: no RISK FACTORS HISTORY OF: Surgery to Spine/Hip(right/left)/Wrist (right/left): no Family History of Osteoporosis: no Active: yes Diet low in dairy products/other sources of calcium: yes Postmenopausal woman: yes Lost more than 2 inches in height since high school: no MEDICATIONS: Additional History: EXAM MEASUREMENTS: Bone mineral densitometry was performed using the [employer] System. Bone mineral density as measured about the Lumbar spine is: ----- L1-L4(G/cm2): 1.507 T Score Values are as follows: ----- L1: 1.9 ----- L2: 1.4 ----- L3: 2.8 ----- L4: 4.2 ----- L1-L4: 2.7 Z Score Values are as follows: ----- L1: 2.9 ----- L2: 2.4 ----- L3: 3.8 ----- L4: 5.2 ----- L1-L4: 3.7 Bone mineral density has: increased 0.9 % since study of: 02.08.2019 Bone mineral density about the R hip (g/cm2): 1.263 Bone mineral density about the L hip (g/cm2): 1.299 T Score values are as follows: -----R Neck: 0.6 -----L Neck: 0.9 -----R Total: 2.0 -----L Total: 2.3 Z Score values are as follows: -----R Neck: 1.8 -----L Neck: 2.1 -----R Total: 2.9 -----L Total: 3.2 Bone mineral density has: decreased -3.7 % since study of: 02.08.2019 FRAX%s: The graph provided illustrates a 9.8% chance for a major osteoporotic fx and a 0.2% chance fo r the hips probability for fx in 10 years time. IMPRESSION: Normal (Values between +1 and -1 indicate normal bone mass). Consider repeating this study in 5 year s or sooner if there is some new clinical indication. NOTE: T-SCORE=SD OF THE YOUNG ADULT MEAN.
--- NOTE | 2022-11-08 19:10 | P.PN ---
Progress Note - Text Progress Note Date: 11/08/22 OUTPATIENT FOLLOW-UP NOTE TEST(S)/RESULTS: Bone density test done on 11/08/2022 was normal. METHOD OF NOTIFICATION: The patient was notified by phone on 11/08/2022. PATIENT COMMENTS: DIAGNOSIS: Normal bone density test. DISCUSSION: Since the T-scores and the Z score as were all positive, I have recommended that she does not need another bone density test for another 7 years . PLAN: As above.
== END ==
LOC: WWCWWP 09:21
PROVIDERS: ATTEND Obstetrics & Gynecology
DX: Z01.419 Encounter for gynecological examination (general) (routine) without abnormal findings (principal); Z78.0 Asymptomatic menopausal state; Z88.0 Allergy status to penicillin; Z88.8 Allergy status to other drugs, medicaments and biological substances
CPT/HCPCS: 77080

== ENCOUNTER → 2022-12-15 | Outpatient (CLI) | payer MEDICARE ==
--- NOTE | 2022-12-15 14:57 | P.SLEEP ---
History of Present Illness DATE: 12/15/2022 CONSULTATION/NEW PATIENT EVALUATION HISTORY OF PRESENT ILLNESS/SLEEP-WAKE EVALUATION: 67-year-old lady had been evaluated in the sleep center for possible obstructive sleep apnea hypopnea syndrome. Patient has history of obstructive sleep apnea-hypopnea syndrome for about 21 years, and this was only one time when she had sleep study. Patient continued to use his CPAP equipment, but CPAP equipment is old and patient feels that time machine is not working for her so well as it was before when she started treatment many years ago. SLEEP SCHEDULE: Usually sleep schedule from 10:11 PM to 7:30 AM 7 days a week. FALLING ASLEEP: Patient has difficulties to initiate sleep, although no TV in bedroom. DURING SLEEP: Patient usually sleeps on the side, has 7 loud snoring, episodes of stop breathing during the sleep, dry mouth, awakenings with panic attacks, palpitation, gasping for air, restless legs and nocturia 1. No history of hypnogogical hallucinations, sleep paralysis, or cataplexy. DURING THE DAY/WAKE STATE: In the morning patient wake up tired, falling asleep during the day. [place] sleepiness scale is increased to 10. Patient may take rare naps 3-4 PM. PAST MEDICAL HISTORY: ALLERGY, multiple episodes of pneumonia and bronchitis, sinuses problems. PAST SURGICAL HISTORY: Bilateral knee replacement. MEDICATIONS: Zoloft 50 mg once a day, Flonase, ALLERGY shots, xyzal 5 mg once a day. SOCIAL HISTORY: Negative for smoking, alcohol consumption occasional. FAMILY HISTORY: Dementia, sleep apnea. REVIEW OF SYSTEMS: Loud snoring, multiple awakenings from sleep. No fevers. No double vision. No recent chest pain. No shortness of breath. No abdominal pain. No bleeding episodes. No blood in urine. No seizure episodes. PHYSICAL EXAMINATION: GENERAL: A pleasant patient without any distress. VITAL SIGNS: BP 122/75 , HR 81 , RR 16 , weight 189.2 pounds, height 5 foot 4-1/4 inches, body mass index 31.2 . HEENT: PERRLA, EOMI. Evaluation of oropharynx showed tongue protrudes midline, low position of soft palate Mallampati 4. NECK: Supple. No JVD. Thyroid is not palpable. 14.5 inches in circumference. LUNGS: Clear to percussion and to auscultation. Good air exchange. No wheezing or rhonchi. HEART: S1, S2 regular. No murmurs, gallops or rubs. ABDOMEN: Soft and nontender. Bowel sounds are present. No organomegaly appreciated. EXTREMITIES: No clubbing or cyanosis. WALL MAN: Awake, alert, and oriented x3. Cranial nerves 2 to 7 intact. There is no fasciculation or atrophy noted. No focal deficits observed. ASSESSMENT: 1. Snoring, multiple awakenings from sleep, extremely low position of soft palate Mallampati 4, history of obstructive sleep apnea hypopnea syndrome. Obstructive sleep apnea hypopnea syndrome. 2. Mild obesity by BMI 31.2. 3. ALLERGY. 4. Sinuses problems. 5 status post multiple pneumonias and bronchitis. 6 . Restless post bilateral knee replacement. PLAN: 1. Polysomnography for evaluation of patient's breathing during sleep. 2. CPAP/BiPAP titration if sleep study confirms obstructive sleep apnea- hypopnea syndrome. 3. Preferable position during sleep on the side. 4. No driving if patient feels any sleepiness. Patient is aware of civil and criminal liability for unsafe driving. 5. Sleep hygiene with regular sleep time for at least 7.5-8 hours. 6. Watching weight. Thank you very much for referring this patient for consultation. Sincerely, Garrett Carbone MD, PhD, FAASM. Diplomat of [place] [employer] of Sleep Medicine, Sleep Medicine Board by [place] [employer] [place] [employer] [facility] [place] Past Medical History Additional Past Medical History / Comment(s): seasonal allergies. 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 . History of Any Multi-Drug Resistant Organisms: None Reported Past Surgical History: Breast Surgery, Cholecystectomy, Orthopedic Surgery Additional Past Surgical History / Comment(s): Bunionectomy. RT BREAST BX - BENIGN. Right arthroscopic knee surgery. Bilateral knee replacement surgeries. Colonoscopy 2018(next after 10yr). Past Anesthesia/Blood Transfusion Reactions: No Reported Reaction Past Psychological History: Anxiety, Depression (Controlled with medications.PHQ-2 questionaire was given and she scores 0. This is a negative screen for depression.) Smoking Status: Never smoker Past Alcohol Use History: Occasional (0-2 per day.) Additional Past Alcohol Use History / Comment(s): DRINKS ABOUT 5 WEEKLY Past Drug Use History: None Reported - Past Family History Father Family Medical History: Cancer Additional Family Medical History / Comment(s): Leukemia Medications and Allergies Home Medications Medication Instructions Recorded Confirmed Type Fluticasone Propionate [Flonase 1 spray EA NOSTRIL DAILY 06/07/17 11/08/22 History Allergy Relief] Sertraline [Zoloft] 50 mg PO DAILY #90 tab 07/10/18 11/08/22 Rx Loratadine [Claritin] 10 mg PO DAILY 10/21/20 11/08/22 History Cholecalciferol (Vitamin D3) 1 cap PO DAILY 11/08/22 11/08/22 History [Vitamin D3 (125 MCG = 5,000 IU)] L.acidoph,Paracasei, B.lactis 1 cap PO DAILY 11/08/22 11/08/22 History [Probiotic] Magnesium Oxide [Magnesium] 500 mg PO DAILY 11/08/22 11/08/22 History Allergies Allergy/AdvReac Type Severity Reaction Status Date / Time amoxicillin [From Augmentin] Allergy Rash/Hives Verified 11/08/22 09:31 clavulanic acid Allergy Rash/Hives Verified 11/08/22 09:31 [From Augmentin] Penicillins Allergy Rash/Hives Verified 11/08/22 09:31 Sleep Note - Sleep Note Sleep Note: Temperature: Pulse Rate: Respiratory Rate: Blood Pressure: SpO2: Height: Weight: BMI: Neck Circumference:
== END ==
LOC: 3 N SLEEP 14:13
PROVIDERS: ATTEND Internal Medicine
DX: G47.33 Obstructive sleep apnea (adult) (pediatric) (principal); E66.9 Obesity, unspecified; J40 Bronchitis, not specified as acute or chronic; J30.2 Other seasonal allergic rhinitis; J34.89 Other specified disorders of nose and nasal sinuses; G25.81 Restless legs syndrome; Z96.653 Presence of artificial knee joint, bilateral; Z68.31 Body mass index [BMI] 31.0-31.9, adult; Z88.0 Allergy status to penicillin; Z88.8 Allergy status to other drugs, medicaments and biological substances
CPT/HCPCS: 99211

== ENCOUNTER 2023-02-08 19:44 | Outpatient (CLI) | payer MEDICARE ==
--- NOTE | 2023-02-15 12:06 | P.PCN ---
Description of Procedure: POLYSOMNOGRAPHY REPORT PROCEDURE(S)/DATE(S): Polysomnography 02/08/2023 CLINICAL: Patient has been seen in the sleep center for evaluation of obstructive sleep apnea-hypopnea syndrome. Please see my consultation. Sleep study has been done for evaluation of patient breathing during the sleep. PROCEDURE: The standard montage for clinical polysomnography included the electroencephalogram, the electrooculogram, the mentalis surface electromyography and Lead II cardiography. The respiratory battery consisted of measurements of nasal/buccal air flow, pressure transducer measurements from nose, thoracic and/or abdominal effort and intercostal surface electromyography. Video monitoring has been done to check for any parasomnia events. Nocturnal oxyhemoglobin saturations were obtained by finger oximetry. Step-turcios titration with positive airway pressure was utilized to control the respiratory events, if necessary. RESULTS: During the diagnostic sleep study sleep efficiency was extremely short 59.9 %. Latency to sleep onset was borderline 28.0 min. Sleep architecture s howed stage NI was extremely high 38.8 %, Delta sleep was absent 0 %, REM sleep was extremely short 4.3 %. Respiratory channel showed 3 obstructive apneas, 0 mixed apneas, 0 central apneas, 62 hypopneas with lowest oxygen level 80 %. Total apnea hypopnea index was 16.1. Heart rate was in the range between 68 and 76, average 70 by computer calculation. EMG showed 20.3 periodic limb movements per hour with 12.9 micro-arousals per hour. IMPRESSIONS: 1. Moderate Obstructive sleep apnea hypopnea syndrome. 2. Significant periodic limb movements have been documented with significant amount related micro-arousals. Please see other impressions from consultation PLAN: 1. The patient will have PAP titration for correction of respiratory abnormalities during the sleep. 2. Losing weight program. 3. Sleep hygiene with regular time in bed for at least 7-1/2 hours. 4. No driving if feeling sleepiness. 5. Please check iron profile including ferritin level. Low level of iron may increase the risk for periodic limb movements. Thank you very much for allowing me to participate in the management of your patient. Sincerely, Garrett Carbone MD, PhD, FAASM. Diplomat of [place] [employer] of Sleep Medicine, Sleep Medicine Board by [place] [employer] of Internal Medicine [employer] [facility] [place]
== END 2023-02-09 05:25 | disposition home or self-care (01) ==
LOC: 3 N SLEEP 19:44
PROVIDERS: ATTEND Internal Medicine
DX: G47.33 Obstructive sleep apnea (adult) (pediatric) (principal); G47.61 Periodic limb movement disorder; Z88.0 Allergy status to penicillin; Z88.8 Allergy status to other drugs, medicaments and biological substances
CPT/HCPCS: 95810

== ENCOUNTER 2023-03-12 19:33 | Outpatient (CLI) | payer MEDICARE ==
--- NOTE | 2023-03-13 10:40 | P.PCN ---
Description of Procedure: CLINICAL: Titration with positive air pressure has been done for correction of respiratory abnormalities during sleep. DESCRIPTION OF PROCEDURE: The standard montage for clinical polysomnography included the electroencephalogram, the electrocardiogram, the mentalis surface electromyography and Lead II cardiography. The respiratory battery consisted of measurements of nasal /buccal air flow, pressure transducer measurements from the nose, thoracic and /or abdominal effort and intercostal surface electromyography. Video monitoring has been done to check for any parasomnia events. Nocturnal oxyhemoglobin saturations were obtained by finger oximetry. Step-turcios titration with positive airway pressure was utilized to control respiratory events. Raw data of sleep recording has been reviewed and is adequate. RESULTS: Sleep efficiency was extremely short 55.3 %. Latency to sleep onset was prolonged significantly to 151.0 minutes.]. Sleep architecture showed stage N1 was slightly increased to 11.8 %, Delta sleep was absent 0 %, REM sleep was in high range 24.2 %. Heart rate was minimum 66 BPM, maximum 77 BPM, average 70 BPM. EMG showed 88.5 periodic limb movements per hour with 0.5 micriarousals per hour. PAP titration have been done with CPAP up to the pressure 10 cm H2O. The best results were at the pressure 10 cm H2O. Apnea hypopnea index reduced to 2.9. IMPRESSION: 1. Obstructive sleep apnea hypopnea syndrome on controle with PAP treatment. 2. Significant periodic limb movements have been documented. Please see other impressions from consultation. PLAN: 1. The patient will have treatment with positive air pressure equipment with the level of pressure AutoPAP 5-11 cm H2O and should use it every night for the whole night. 2. Watching and losing weight. 3. Sleep hygiene with regular time in bed for at least 8 hours. 4. No driving if feeling any sleepiness. 5. I will see the patient for follow up visit to explain the results of the test, recommendations, check compliance with treatment and make any necessary adjustment related to mask fitting, pressure and humidification. 6. Please check iron profile including ferritin level. Low level of iron may increase risk for periodic limb movements Thank you very much for allowing me to participate in the management of your patient. Sincerely, Garrett Carbone MD, PhD, FAASM Diplomat of [place] [employer] Specialties Sleep Medicine Board of [place] Board of Internal Medicine [facility] [employer] [place]
== END 2023-03-13 05:20 | disposition home or self-care (01) ==
LOC: 3 N SLEEP 19:33
PROVIDERS: ATTEND Internal Medicine
DX: G47.33 Obstructive sleep apnea (adult) (pediatric) (principal); G47.61 Periodic limb movement disorder; Z88.0 Allergy status to penicillin; Z88.1 Allergy status to other antibiotic agents
CPT/HCPCS: 95811

== ENCOUNTER → 2023-06-01 | Outpatient (CLI) | payer MEDICARE ==
[2023-06-01 14:22] VITALS: BP 124/73; PULSE 78; RESP 16; TEMP 97.2
--- NOTE | 2023-06-01 16:57 | P.PN ---
Subjective DATE: 06/01/2023 FOLLOW UP VISIT. Patient with obstructive sleep apnea hypopnea syndrome return to sleep center for follow-up visit. Recently patient had sleep studies and explained results of sleep studies to the patient in details. Information from previous visit have been reviewed. This is first visit after patient received new CPAP unit. Patient is using PAP equipment every night for the whole night, getting PAP supplies in time. The patient does not have significant problems with the mask, PAP unit and humidification. [place] sleepiness scale is 3, which is normal. I checked information from PAP unit. PAP unit pressure 5-11 cm H2O. Usage is 100% for more then 4 hours, average 7.4 hours per night. Leak is 8 l/m, which is in acceptable range. Apnea Hypopnea Index is 0.5, which is normal. MEDICATIONS:1. Zoloft 50 mg once a day 2. Flonase 3. Allergy shots 4. xyzal 5 mg once a day During physical exam: GENERAL: A pleasant patient without any distress. VITAL SIGNS: Please see below. HEENT: PERRLA, EOMI.low position of soft palate, Mallapati 4 . NECK: Supple. No JVD. LUNGS: Clear to percussion and to auscultation. Good air exchange. No wheezing or rhonchi. HEART: S1, S2 regular. ABDOMEN: Soft and nontender.[] EXTREMITIES: No clubbing or cyanosis. 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 No focal deficit. Impressions: 1. Obstructive sleep apnea-hypopnea syndrome. Patient demonstrated great compliance with treatment, benefiting from treatment. 2. Allergy. 3. History of cyanosis problems. 4. Status post multiple pneumonias and bronchitis. 5. Status post bilateral knee replacement. 6. Periodic limb movements have been documented during the sleep study, no significant complaints. Plan: 1. Continue using PAP equipment every night for the whole night. 2. To change air filter at least 1-2 times per month. 3. PAP unit should stay lower then position of the head. 4. Advised patient to remove all remaining water from humidifier canister daily and make it dry after each usage. Refill canister with fresh distilled water before each usage. 5. Sleep hygiene with regular time in bed for at least 8 hours. 6. Precautions related to driving. No driving if feel any sleepiness. 7. I will maintain prescription for PAP supplies including mask, tube, filters. 8. Follow up visit in 6 months or earlier if patient has any problems. 9. Watching weight. Thank you very much for allowing me to participate in the management of your patient. Garrett Carbone MD, PhD, FAASM. Diplomat of [place] Board of Sleep Medicine, Sleep Medicine Board by [place] [employer] of Internal Medicine Slot Service Specialist [facility] [place] Objective - Vital Signs Vital signs: Vital Signs Temp 97.2 F L 06/01/23 14:09 Pulse 78 06/01/23 14:09 Resp 16 06/01/23 14:09 BP 124/73 06/01/23 14:09 Pulse Ox 97 06/01/23 14:09 FiO2
== END ==
LOC: 3 N SLEEP 13:34
PROVIDERS: ATTEND Internal Medicine
DX: G47.33 Obstructive sleep apnea (adult) (pediatric) (principal); T78.40XA Allergy, unspecified, initial encounter; G47.61 Periodic limb movement disorder; Z99.89 Dependence on other enabling machines and devices; Z96.653 Presence of artificial knee joint, bilateral; Z87.01 Personal history of pneumonia (recurrent); Z86.79 Personal history of other diseases of the circulatory system; Z88.0 Allergy status to penicillin
CPT/HCPCS: 99212

== ENCOUNTER → 2023-09-13 | Outpatient (CLI) | payer MEDICARE ==
--- NOTE | 2023-09-25 10:10 | MR ---
EXAMINATION TYPE: MR ankle LT wo con DATE OF EXAM: 09/13/2023 COMPARISON: NONE HISTORY: 67-year-old female M76.822posterior tibial tendinitis, Left ankle pain and swelling for 4-5 months. TECHNIQUE: Multiplanar, multisequence images of the left ankle were obtained without IV contrast. FINDINGS: No acute or healing fracture. There is a T2 hyperintense bubbly lesion involving the lateral malleolus/distal fibula measuring 2.7 x 1.4 x 1.3 cm. No associated cortical destruction, adjacent bone marrow edema, or soft tissue compon ent is seen. 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 A couple small 4 mm ganglion cyst formation from the dorsal navicular cuneiform joints. Some mild generalized dorsal subcutaneous soft tissue swelling is present. Small plantar heel spur. Smooth delineation of the Achilles tendon. Origin of the plantar fascia is i ntact. Preserved fat sinus tarsi. Tarsal tunnel is clear.. The tibiotalar and subtalar joints are intact without significant effusion. There is [id number] tenosynovial fluid along the anterior tibial tendon. Tendon thickening at a nd below the ankle with prominent intrasubstance tear beginning at the level of the ankle and multipl e split tears forming and extending distally to its insertion. The remainder of the anterior extensor tendons and syndesmosis appear intact. There is a short segment partial-thickness split of the inframalleolar peroneus brevis with associate d tenosynovial fluid. No retracted tear. The ATFL, PTFL, and CFL are intact. Mild tenosynovial fluid along the posterior tibial tendon but without abnormal thickening. Minimal in terstitial tearing is present at the navicular insertion. The medial flexor tendons and deltoid sprin g ligament complexes otherwise appear intact. IMPRESSION: 1. Moderate to severe anterior tibial tendinosis especially at the ankle and below. Prominent intrasu bstance tear begins at the level of the ankle with multiple split tears forming and extending distall y to its insertion. 2. Mild fluid along the posterior tibial tendon could be physiologic or could represent a mild tenosy novitis. There is minimal interstitial tearing at its navicular insertion. 3. Short segment, partial-thickness split of the inframalleolar peroneus brevis with associated tenos ynovitis. No retracted tear. 4. A bubbly, T2 hyperintense bone lesion of the lateral malleolus/distal fibula. Recommend radiograph ic correlation to assess zone of transition and any periosteal changes. By MRI, no cortical destructi on, adjacent osseous edema, or extraosseous soft tissue component is seen. Some differential consider ations include a fibro-osseous or chondroid lesion. In addition to radiographs, unless symptomatic, c onsider conservative surveillance with six-month follow-up MRI. 5. Focal severe osteoarthritic change at the third TMT joint and mild to moderate at the second and f ourth TMT joints.
== END | disposition home or self-care (01) ==
LOC: RADMRIMAIN 15:31
PROVIDERS: ATTEND Podiatrist Foot & Ankle Surgery
DX: M76.822 Posterior tibial tendinitis, left leg (principal); M65.9 Synovitis and tenosynovitis, unspecified

== ENCOUNTER → 2023-11-14 | Outpatient (CLI) | payer MEDICARE ==
[2023-11-14 12:24] VITALS: BP 121/71; PULSE 71; RESP 16; TEMP 98.3
--- NOTE | 2023-11-14 13:28 | P.HPOB ---
History of Present Illness H&P Date: 11/14/23 Chief Complaint: The patient is here for her routine gynecologic exam and ma mmogram. This is a 68-year-old with an LMP of 2007. Patient is complaining of vaginal dryness, not only with sexual activity but with day-to-day activities. She has tried using some Aquaphor to the vulvar area. She is also been experiencing some urinary urgency where she has to get to the bathroom right away. She denies dysuria and she does not believe it is a urinary tract infection symptoms. She also denies postvoiding urgency. Review of Systems The patient's weight has been stable over the last year. She denies respiratory, cardiac, or G.I. problems. Past Medical History Past Medical History: Sleep Apnea/CPAP/BIPAP Additional Past Medical History / Comment(s): seasonal allergies. 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 . History of Any Multi-Drug Resistant Organisms: None Reported Past Surgical History: Breast Surgery, Cholecystectomy, Orthopedic Surgery Additional Past Surgical History / Comment(s): Bunionectomy. RT BREAST BX - BENIGN. Right arthroscopic knee surgery. Bilateral knee replacement surgeries. Colonoscopy 2022(next after 10yr). Past Anesthesia/Blood Transfusion Reactions: No Reported Reaction Additional Past Anesthesia/Blood Transfusion Reaction / Comment(s): no blood transfusion Past Psychological History: Anxiety, Depression Smoking Status: Never smoker Past Alcohol Use History: Occasional (2-4 drinks per week.) Past Drug Use History: None Reported Additional Drug Use History / Comment(s): cbd gummies to sleep Additional History: She has been since 1973 and is sexually active. She is retired. - Past Family History Father Family Medical History: Cancer Additional Family Medical History / Comment(s): Leukemia Daughter(s) Additional Family Medical History / Comment(s): Thoracic endometriosis. Medications and Allergies Home Medications Medication Instructions Recorded Confirmed Type Fluticasone Propionate [Flonase 1 spray EA NOSTRIL DAILY 06/07/17 11/14/23 History Allergy Relief] Sertraline [Zoloft] 50 mg PO DAILY #90 tab 07/10/18 11/14/23 Rx Cholecalciferol (Vitamin D3) 1 cap PO DAILY 11/08/22 11/14/23 History [Vitamin D3 (125 MCG = 5,000 IU)] L.acidoph,Paracasei, B.lactis 1 cap PO DAILY 11/08/22 11/14/23 History [Probiotic] Magnesium Oxide [Magnesium] 500 mg PO DAILY 11/08/22 11/14/23 History Levocetirizine Dihydrochloride 5 mg PO DAILY 03/23/23 11/14/23 History [Xyzal] Allergies Allergy/AdvReac Type Severity Reaction Status Date / Time amoxicillin [From Augmentin] Allergy Rash/Hives Verified 11/14/23 12:22 clavulanic acid Allergy Rash/Hives Verified 11/14/23 12:22 [From Augmentin] Penicillins Allergy Rash/Hives Verified 11/14/23 12:22 Exam Vital Signs Temp Pulse Resp BP Pulse Ox 11/14/23 12:23 98.3 F 71 16 121/71 95 Intake and Output 11/13/23 11/14/23 11/14/23 22:59 06:59 14:59 Other: Weight 86.183 kg Height 5 feet 4 inches, weight 190 pounds, BMI 32.6. This is a well-developed well-nourished white female who is alert and oriented times 3 in no acute distress. HEENT: Within normal limits. NECK: Supple without mass or thyromegaly. CHEST AND LUNGS: Clear to auscultation. HEART: Regular rate and rhythm. BREASTS: Are without mass or discharge. AXILLARY EXAM: Negative for adenopathy. BACK: Negative for CVA tenderness. ABDOMEN: Soft, nontender, without palpable masses. PELVIC EXAM: Normal external genitalia with mild atrophy. Cervix and vagina appear normal with mild atrophy. There is no unusual discharge. There is no evidence of prolapse. The uterus is midposition, nongravid size and nontender. There are no palpable adnexal masses or tenderness. RECTAL EXAM: Rectovaginal exam is negative for mass or tenderness and is negative for occult blood. EXTREMITIES: Nontender. IMPRESSION: 1. 68-year-old menopausal female with normal gynecologic exam. 2. Vaginal dryness is problematic for the patient. 3. Intermittent urinary urgency which makes her get to the bathroom right away. PLAN: 1. Pap smears have been discontinued. 2. Self breast awareness was discussed with the patient. We have also discussed symptoms associated with inflammatory breast cancer. 3. Screening mammogram will be done today. 4. I recommended regular Kegel exercises and timed voids. We have discussed how she should do Kegel exercises. If symptoms are not improving, we can consider medications for an overactive bladder. She was instructed to call if she thinks she is having UTI symptoms. She does not believe this resembles a UTI which she has had in the past. 5. Trial of estradiol vaginal cream. She will use 1 g into the vagina 2 times weekly. She can also use a small amount near the urinary opening and on the inner lips. The electronic prescription will be sent to [facility] pharmacy in [place]. 6. She was advised to return in one year for her annual well woman exam and as needed.
--- NOTE | 2023-11-15 13:23 | MM ---
Reason for Exam: Screening (asymptomatic). Last mammogram was performed 1 year(s) and 8 month(s) ago. Patient History: Menarche at age 13. First Full-Term at age 19. Postmenopausal. Patient has history of breast feeding. Progesterone for 1 month. 01/08/2013, Benign Core Biopsy on the right side. Risk Values: Sharda 5 year model risk: 1.7%. NCI Lifetime model risk: 5.1%. Prior Study Comparison: 03/03/2020 Bilateral Screening Mammogram, [facility]. 03/08/2021 Bilateral Screening Mammogram, [facility]. 03/15/2022 Bilateral MG 3D screening mammo w/cad, [facility]. Tissue Density: There are scattered areas of fibroglandular density. Findings: Analyzed By CAD. Right breast: There is no suspicious group of microcalcifications or new suspicious mass. Benign-appearing calcifications right breast. Left breast: There is no suspicious group of microcalcifications or new suspicious mass. Benign-appearing calcifications left breast. Overall Assessment: Benign, BI-RAD 2 Management: Screening Mammogram of both breasts in [address] [facility] will attempt to contact patient to return for supplemental views and ultrasound if indicated. Patient should continue monthly self-breast exams. A clinical breast exam by your physician is recommended on an annual basis. This exam should not preclude additional follow-up of suspicious palpable abnormalities. Note on Sharda scores and lifetime risk: 1. A Sharda score greater than 3% is considered moderate risk. If this is the case, consider specialist referral to assess eligibility for a risk reducing agent. 2. If overall lifetime risk for the development of breast cancer is 20% or higher, the patient may qualify for future screening with alternating mammogram and breast MRI. [facility], , 11/15/2023 1:20 PM. Electronically signed and approved by: Tai Carney DO
== END ==
LOC: WWCWWP 12:07
PROVIDERS: ATTEND Obstetrics & Gynecology
DX: Z12.31 Encounter for screening mammogram for malignant neoplasm of breast (principal); N95.2 Postmenopausal atrophic vaginitis; R39.15 Urgency of urination; Z78.0 Asymptomatic menopausal state; Z88.0 Allergy status to penicillin; Z88.8 Allergy status to other drugs, medicaments and biological substances; Z88.1 Allergy status to other antibiotic agents

== ENCOUNTER → 2024-01-04 | Outpatient (CLI) | payer MEDICARE ==
[2024-01-04 13:43] VITALS: BP 114/83; PULSE 86; RESP 16; TEMP 97.9
--- NOTE | 2024-01-04 13:55 | P.PROGSL ---
Subjective DATE: 01/04/2024 FOLLOW UP VISIT. Patient with obstructive sleep apnea hypopnea syndrome return to sleep center for follow-up visit. Information from previous visit have been reviewed. Patient is using PAP equipment every night for the whole night, getting PAP supplies in time. The patient does not have significant problems with the mask, PAP unit and humidification. [place] sleepiness scale is 3, which is normal. I checked information from PAP unit. PAP unit pressure 5-11, average 10.9 cm H2O. Usage is 100% for more then 4 hours, average 6.9 hours per night. Leak is 11 l/m, which is in acceptable range. Apnea Hypopnea Index is 0.4, which is normal. MEDICATIONS have been reviewed, please see below. During physical exam: GENERAL: A pleasant patient without any distress. VITAL SIGNS: Please see below, weight is 190.8 lbs. HEENT: PERRLA, EOMI.low position of soft palate, [place]ati 4 . NECK: Supple. No JVD. LUNGS: Clear to percussion and to auscultation. Good air exchange. No wheezing or rhonchi. HEART: S1, S2 regular. ABDOMEN: Soft and nontender.[] EXTREMITIES: No clubbing or cyanosis. FORGING PRESS SETTER UP: Awake, alert, and oriented x3. No focal deficit. Impressions: 1. Obstructive sleep apnea-hypopnea syndrome. Patient demonstrated great compliance with treatment, benefiting from treatment. 2. History of sinuses problems. 3. Allergy. 4. Status post multiple pneumonias and bronchitis. 5. Periodic limb movements have been documented during polysomnogram, no complaints at the present time. 6. Status post bilateral knee replacement. 7. Mild obesity, BMI 32.6 Plan: 1. Continue using PAP equipment every night for the whole night. 2. Sleep hygiene with regular time in bed for at least 7.5-8 hours 3. PAP unit should stay lower then position of the head. 4. Advised patient to remove all remaining water from humidifier canister daily and make it dry after each usage. Refill canister with fresh distilled water before each usage. 5. Watching weight. 6. Precautions related to driving. No driving if feel any sleepiness. 7. I will maintain prescription for PAP supplies including mask, tube, filters. 8. Follow up visit in 8 months or earlier if patient has any problems. Thank you very much for allowing me to participate in the management of your patient. Garrett Carbone MD, PhD, FAASM. Diplomat of [place] [employer], Sleep Medicine Board by [place] [employer] [facility] [place] Objective - Vital Signs Vital Signs: Vital Signs Temp 97.9 F 01/04/24 13:42 Pulse 86 01/04/24 13:42 Resp 16 01/04/24 13:42 BP 114/83 01/04/24 13:42 Pulse Ox 96 01/04/24 13:42 FiO2 Intake & Output 01/03/24 01/04/24 01/04/24 18:59 06:59 18:59 Weight 86.409 kg Home Medications: Home Medications Medication Instructions Recorded Confirmed Type Fluticasone Propionate [Flonase 1 spray EA NOSTRIL DAILY 06/07/17 01/04/24 History Allergy Relief] Sertraline [Zoloft] 50 mg PO DAILY #90 tab 07/10/18 01/04/24 Rx Cholecalciferol (Vitamin D3) 1 cap PO DAILY 11/08/22 11/14/23 History [Vitamin D3 (125 MCG = 5,000 IU)] L.acidoph,Paracasei, B.lactis 1 cap PO DAILY 11/08/22 11/14/23 History [Probiotic] Magnesium Oxide [Magnesium] 500 mg PO DAILY 11/08/22 11/14/23 History Levocetirizine Dihydrochloride 5 mg PO DAILY 03/23/23 01/04/24 History [Xyzal] Estradiol Cream [Estrace Cream 1 gm VAGINAL DIRECTED #42.5 gm 11/14/23 Rx 0.01%]
== END ==
LOC: 3 N SLEEP 13:20
PROVIDERS: ATTEND Internal Medicine
DX: G47.33 Obstructive sleep apnea (adult) (pediatric) (principal); E66.9 Obesity, unspecified; Z96.653 Presence of artificial knee joint, bilateral; Z99.89 Dependence on other enabling machines and devices; Z68.32 Body mass index [BMI] 32.0-32.9, adult; Z87.09 Personal history of other diseases of the respiratory system; Z88.0 Allergy status to penicillin; Z88.8 Allergy status to other drugs, medicaments and biological substances
CPT/HCPCS: 99212

== ENCOUNTER → 2024-08-28 | Outpatient (CLI) | payer MEDICARE ==
[2024-08-28 11:10] VITALS: BP 126/79; PULSE 78; RESP 16; TEMP 98.1
--- NOTE | 2024-08-28 11:31 | P.PROGSL ---
Subjective DATE: 08/28/2024 FOLLOW UP VISIT. Patient with obstructive sleep apnea hypopnea syndrome return to sleep center for follow-up visit. Information from previous visit have been reviewed. Patient is using PAP equipment every night for the whole night, getting PAP supplies in time. The patient does not have significant problems with the mask, PAP unit and humidification. [place] sleepiness scale is 2. I checked information from PAP unit. PAP unit pressure 5-11, average 10.7 cm H2O. Usage is 98% for more then 4 hours, average 6.9 hours per night. Leak is 20 l/m, which is in acceptable range. Apnea Hypopnea Index is 0.5, which is normal. MEDICATIONS have been reviewed, please see below. During physical exam: GENERAL: A pleasant patient without any distress. VITAL SIGNS: Please see below, weight is 189 lbs. HEENT: PERRLA, EOMI.low position of soft palate, [place] 4 . NECK: Supple. No JVD. LUNGS: Clear to percussion and to auscultation. Good air exchange. No wheezing or rhonchi. HEART: S1, S2 regular. ABDOMEN: Soft and nontender.[] EXTREMITIES: No clubbing or cyanosis. REHAB DIRECTOR OCCUPATIONAL THERAPIST: Awake, alert, and oriented x3. No focal deficit. Impressions: 1. Obstructive sleep apnea-hypopnea syndrome. Patient demonstrated great compliance with treatment, benefiting from treatment. 2. Allergy. 3. History of sinuses and nasal problems. 4. Status post multiple pneumonias and bronchitis. 5. Status post bilateral knee replacement. 6. Periodic limb movements have been documented during sleep study, no complaints. 7. Mild obesity, no significant changes of weight comparing with previous visit, BMI 32.6. I slightly increased range of the pressure to 5-12 cm of water in CPAP unit. Plan: 1. Continue using PAP equipment every night for the whole night. 2. Sleep hygiene with regular time in bed for at least 7.5-8 hours 3. PAP unit should stay lower then position of the head. 4. Advised patient to remove all remaining water from humidifier canister daily and make it dry after each usage. Refill canister with fresh distilled water before each usage. 5. Watching and losing weight. 6. Precautions related to driving. No driving if feel any sleepiness. 7. I will maintain prescription for PAP supplies including mask, tube, filters. 8. Follow up visit in 8 months or earlier if patient has any problems. Thank you very much for allowing me to participate in the management of your patient. Garrett Carbone MD, PhD, FAASM. Diplomat of [place] [employer], Sleep Medicine Board by [place] [employer] [facility] [place] Objective - Vital Signs Vital Signs: Vital Signs Temp 98.1 F 08/28/24 11:09 Pulse 78 08/28/24 11:09 Resp 16 08/28/24 11:09 BP 126/79 08/28/24 11:09 Pulse Ox 98 08/28/24 11:09 FiO2 Intake & Output 08/27/24 08/28/24 08/28/24 18:59 06:59 18:59 Weight 86.127 kg Home Medications: Home Medications Medication Instructions Recorded Confirmed Type Fluticasone Propionate [Flonase 1 spray EA NOSTRIL DAILY 06/07/17 08/28/24 History Allergy Relief] Sertraline [Zoloft] 50 mg PO DAILY #90 tab 07/10/18 08/28/24 Rx Cholecalciferol (Vitamin D3) 1 cap PO DAILY 11/08/22 11/14/23 History [Vitamin D3 (125 MCG = 5,000 IU)] L.acidoph,Paracasei, B.lactis 1 cap PO DAILY 11/08/22 11/14/23 History [Probiotic] Magnesium Oxide [Magnesium] 500 mg PO DAILY 11/08/22 11/14/23 History Levocetirizine Dihydrochloride 5 mg PO DAILY 03/23/23 08/28/24 History [Xyzal] Estradiol Cream [Estrace Cream 1 gm VAGINAL DIRECTED #42.5 gm 11/14/23 Rx 0.01%]
== END ==
LOC: 3 N SLEEP 10:54
PROVIDERS: ATTEND Internal Medicine
DX: G47.33 Obstructive sleep apnea (adult) (pediatric) (principal); T78.40XA Allergy, unspecified, initial encounter; E66.9 Obesity, unspecified; F12.90 Cannabis use, unspecified, uncomplicated; Z87.09 Personal history of other diseases of the respiratory system; Z99.89 Dependence on other enabling machines and devices; Z96.653 Presence of artificial knee joint, bilateral; Z68.32 Body mass index [BMI] 32.0-32.9, adult; Z88.0 Allergy status to penicillin; Z88.1 Allergy status to other antibiotic agents
CPT/HCPCS: 99212

== ENCOUNTER → 2024-09-04 | Outpatient (CLI) | payer MEDICARE ==
--- NOTE | 2024-09-04 13:48 | NM ---
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 Immedia te images and 5.5 hours post injection images acquired. FINDINGS: Significant uptake is identified on either knee arthroplasty. There is no significant abnormal accumu lation of radiotracer to suggest metastatic disease to the bone or other significant abnormality. IMPRESSION: 1. No evidence for loosening. No significant uptake around the knees. 2. No scintigraphic evidence of osseous metastatic disease. [facility], , 09/04/2024 1:46 PM
== END | disposition home or self-care (01) ==
LOC: RADNMMAIN 07:18
PROVIDERS: ATTEND Orthopaedic Surgery
DX: T84.033A Mechanical loosening of internal left knee prosthetic joint, initial encounter (principal)
CPT/HCPCS: 78315; A9503

== ENCOUNTER → 2024-09-06 | Outpatient (CLI) | payer MEDICARE ==
[2024-09-06 15:31] LABS: HCT 37.7 % (37.2-46.3); HGB 12.3 g/dL (12.0-15.0); MCH 29.4 pg (27.0-32.0); MCHC 32.6 g/dL (32.0-37.0); MCV 90.2 FL (80.0-97.0); NRBC Per 100 WBC 0 X 10*3/uL (0.00-0.01); Platelet Count 300 X 10*3/uL (140-440); RBC 4.18 X 10*6/uL (4.10-5.20); RDW 12.3 % (11.5-14.5); WBC 6.54 X 10*3/uL (4.50-10.00)
== END | disposition home or self-care (01) ==
LOC: LABWHC1 11:04
PROVIDERS: ATTEND Orthopaedic Surgery
DX: T84.54XA Infection and inflammatory reaction due to internal left knee prosthesis, initial encounter (principal)
CPT/HCPCS: 36415; 85027; 85652; 86140